=== PATIENT | female | born 1990 | race African-American/Black ===

== ENCOUNTER 2017-01-23 07:32 | Day surgery (SDC) | payer OTHER ==
[~2017-01-23] VITALS: Ht 167.6 cm; Wt 81.6 kg
[~2017-01-23 07:32] MED LIST: FLEXERIL5 MG PO; MOBIC7.5 MG PO; MULTIPLE VITAM1 EAC1 PO
== END 2017-01-23 09:33 | disposition home or self-care (01) ==
LOC: PAIN 07:32 → SDC 08:00 → PAIN 08:00
DX: G57.01 Lesion of sciatic nerve, right lower limb (principal); M54.16 Radiculopathy, lumbar region; M70.71 Other bursitis of hip, right hip
CPT/HCPCS: J1030; J2250; J3010; S0020

== ENCOUNTER 2017-02-18 09:56 | Day surgery (SDC) | payer OTHER ==
[~2017-02-18] VITALS: Ht 167.6 cm; Wt 81.8 kg
== END 2017-02-18 12:40 | disposition home or self-care (01) ==
LOC: PAIN 09:56
DX: M54.16 Radiculopathy, lumbar region (principal); M70.71 Other bursitis of hip, right hip; G57.01 Lesion of sciatic nerve, right lower limb; M79.671 Pain in right foot
CPT/HCPCS: J1100; J1885; J2250; J3010

== ENCOUNTER 2017-08-03 13:39 | Emergency (ER) | payer OTHER ==
[~2017-08-03] VITALS: Ht 167.6 cm; Wt 84.8 kg
[2017-08-03] MEDS ORDERED: AMOXICILLIN500 MG PO (17:01)
[2017-08-03 17:09] VITALS: BP 123/79
== END 2017-08-03 17:04 | disposition home or self-care (01) ==
LOC: EME 13:39
DX: J02.9 Acute pharyngitis, unspecified (principal)
CPT/HCPCS: 87651 90; 99281; 99284